=== PATIENT | male | born 2000 | race Hispanic/Latino ===

== ENCOUNTER 2022-09-10 16:39 | Inpatient (IN) | payer SELFPAY ==
[2022-09-10] MEDS ORDERED: Morphine 4 MG/ML VIAL ONE (18:01)
[2022-09-10] MEDS ORDERED: CEFAZOLIN 2 GM VIAL ONE (18:01)
[2022-09-10] MEDS ORDERED: Boostrix 0.5 ML (Tdap) VIAL (>/=7 yrs of age) ONE (18:02)
[2022-09-10 23:55] VITALS: BMI 36.5
[2022-09-11] MEDS: Morphine 2 MG/ML VIAL SLOW IVP PRN ×2 (04:15→08:14)
[2022-09-11] MEDS ORDERED: Morphine 4 MG/ML VIAL SLOW IVP PRN ×2 (09:41→15:00)
[2022-09-11] MEDS ORDERED: Bupivacaine PF 0.5% 30 ML VIAL ONE (12:59)
[2022-09-11] MEDS ORDERED: fentaNYL 50 mcg/mL 1 mL Vial ONE ×2 (13:30→14:10)
[2022-09-11] MEDS ORDERED: PROPOFOL 40 ML ONE (13:30)
[2022-09-11] MEDS ORDERED: Ondansetron PF 4 MG/2 ML Vial ONE (13:31)
[2022-09-11] MEDS ORDERED: Ketorolac Tromethamine 30 MG/ML VIAL ONE (13:32)
[2022-09-11] MEDS ORDERED: Lidocaine 2% PF 100 mg/5 ml Syringe ONE (13:32)
[2022-09-11] MEDS ORDERED: CEFAZOLIN 2 GM VIAL ONE (13:42)
[2022-09-11] MEDS ORDERED: GENTAMICIN SULFATE 40 MG/ML IRR SCH (13:45)
[2022-09-11] MEDS ORDERED: Ondansetron PF 4 MG/2 ML Vial IVP PRN (15:00)
[2022-09-11] MEDS ORDERED: HYDROcodone/Acetaminophen 10/325 mg Tablet PO PRN ×2 (15:00)
[2022-09-11] MEDS ORDERED: Communication Order-Pharmacy FS SCH (15:00)
[2022-09-11] MEDS: Ketorolac Tromethamine 30 MG/ML VIAL IVP SCH (17:27)
[2022-09-11] MEDS: CEFAZOLIN 2 GM in Sodium Chloride 0.9% 100 ML IVPB SCH (22:00)
[2022-09-12] MEDS: Ketorolac Tromethamine 30 MG/ML VIAL IVP SCH ×3 (02:47→12:43)
[2022-09-12] MEDS: CEFAZOLIN 2 GM in Sodium Chloride 0.9% 100 ML IVPB SCH (06:22)
[2022-09-12 16:02] VITALS: BP 113/61; TEMP 98.3
== END 2022-09-12 15:50 | disposition home or self-care (01) | DRG 906 ==
LOC: CSHERS 16:39 → INTOOBSV 23:16 → CSHTELE 23:16 → OBSVTOIN 09-11 15:00
PROVIDERS: ADMIT Student in an Organized Health Care Education/Training Program; ATTEND Student in an Organized Health Care Education/Training Program
PROC: 0J9K0ZZ Drainage of Left Hand Subcutaneous Tissue and Fascia, Open Approach (ICD-10-PCS; principal; 2022-09-11)
PROC: 0JBK0ZZ Excision of Left Hand Subcutaneous Tissue and Fascia, Open Approach (ICD-10-PCS; 2022-09-11)
DX: T70.4XXA Effects of high-pressure fluids, initial encounter (principal); S69.82XA Other specified injuries of left wrist, hand and finger(s), initial encounter; X58.XXXA Exposure to other specified factors, initial encounter; Z18.89 Other specified retained foreign body fragments
CPT/HCPCS: 90715; 93005; 94760; 96375; 96376; G0378; J1885; J2001; J2270; J2272; J2405; J2704; J3010; J3490; S0020